=== PATIENT | male | born 1960 ===

== ENCOUNTER 2018-12-07 09:32 | Outpatient (CLI) | payer OTHER ==
[~2018-12-07] VITALS: Ht 152.4 cm; Wt 113.4 kg
== END 2018-12-07 09:45 | disposition home or self-care (01) ==
LOC: OFIC 805 09:32
DX: H93.11 Tinnitus, right ear (principal); H69.83 Other specified disorders of Eustachian tube, bilateral; H90.42 Sensorineural hearing loss, unilateral, left ear, with unrestricted hearing on the contralateral side; R42 Dizziness and giddiness; J31.0 Chronic rhinitis

== ENCOUNTER 2023-05-11 07:08 | Outpatient (CLI) | payer OTHER | END 2023-05-11 07:17 | disposition home or self-care (01) | LOC: SONOGRAMA 07:08 | PROVIDERS: ATTEND Specialist | DX: K80.10 Calculus of gallbladder with chronic cholecystitis without obstruction (principal) ==

== ENCOUNTER 2024-06-28 07:21 | Day surgery (SDC) | payer OTHER ==
[2024-06-28] MEDS ORDERED: DIPHENHYDRAMINE HCL 50 MG/ML VIAL 1ML IV ONE (12:15)
[2024-06-28] MEDS ORDERED: fentaNYL CITRATE 50 MCG/ML AMPUL IV PUSH ONE (12:15)
== END 2024-06-28 11:50 | disposition home or self-care (01) ==
LOC: AMB-ENDOS 07:21
PROVIDERS: ATTEND Surgery
DX: D12.5 Benign neoplasm of sigmoid colon (principal); K57.30 Diverticulosis of large intestine without perforation or abscess without bleeding